=== PATIENT | male | born 1990 | race Hispanic/Latino ===

== ENCOUNTER 2018-05-08 11:48 | Emergency (ER) | payer OTHER ==
[~2018-05-08] VITALS: Ht 172.7 cm; Wt 81.6 kg
[~2018-05-08 11:48] MED LIST: AMOXICILLIN875 M1 PO; BACTRIM DS TAB1 EACH PO; CYCLOBENZAPRINE10 M1 PO; IBUPROFEN800 M1 PO; MEDROL4 M2 PO; MOTRIN800 MG PO; PERCOCET 325 MG1 TA2 PO; TAMIFLU75 M1 PO; ZOFRAN4 M1 PO
[2018-05-08 12:06] VITALS: BP 136/90
[2018-05-08 12:58] LABS: ABSOLUTE BASOPHIL COUNT 0 /CUMM (0.0-0.2); ABSOLUTE EOSINOPHIL COUNT 0.1 /CUMM (0.0-0.7); ABSOLUTE GRANULOCYTE CT 2.9 /CUMM (1.4-6.5); ABSOLUTE LYMPH COUNT 1.8 /CUMM (1.2-3.4); ABSOLUTE MONOCYTE COUNT 0.6 /CUMM (0.10-0.60); BASOPHIL % 0.3 % (0.0-2.0); EOSINOPHIL % 1.8 % (0-5); GRANULOCYTE % 54.2 % (42.2-75.2); HEMATOCRIT 48.3 % (42-52); MEAN CORPUSCULAR HGB 32.1 PG (27.0-31.0); MEAN CORPUSCULAR VOLUME 94.4 FL (80.0-94.0); MEAN PLATELET VOLUME 8.9 FL (7.4-10.4); PLATELET COUNT 254 /CUMM (130-400); RBC DISTRIBUTION WIDTH 13.8 % (11.5-14.5); RED BLOOD CELL CT 5.12 /CUMM (4.70-6.10); WHITE BLOOD CELL COUNT 5.4 /CUMM (4.8-10.8)
--- NOTE | 2018-05-08 14:27 | ED GENERAL ADULT ---
History of Present Illness General Chief Complaint: Dizziness Stated Complaint: "MY EYES ARE BOUNCING" NAUSEA Source: patient Exam Limitations: no limitations Vital Signs & Intake/Output Vital Signs & Intake/Output Vital Signs Date Time Temp Pulse Resp B/P B/P Pulse O2 O2 Flow FiO2 Mean Ox Delivery Rate 05/08 1206 96.4 61 18 136/90 99 Room Air Allergies Coded Allergies: NO KNOWN ALLERGIES (03/28/13) Reconcile Medications Amoxicillin 875 MG TABLET 1 TAB PO BID ABSCESS Ibuprofen 800 MG TABLET 1 TAB PO TID PRN PAIN Ibuprofen 800 MG TABLET 1 TAB PO TID FEVER/ACHES LORazepam (Ativan) 1 MG TAB 1 TAB PO BID PRN DIZZY Ondansetron (Zofran Odt) 4 MG TAB.RAPDIS 1 TAB SL TID PRN nausea Sulfamethoxazole/Trimethoprim (Bactrim Ds Tablet) 800 MG-160 MG TABLET 1 TAB PO BID ABSCESS Triage Note: PT FROM HOME C/O RODRIGUEZ, "OFF BALANCE" X2-3DAYS. PT STATES A FEW DAYS PRIOR HE AWOKE AND "IT HURTS TO MOVE MY HEAD, I FEEL OFF BALANCE, DIZZY, RODRIGUEZ, AND NAUSEA. VSS. Triage Nurses Notes Reviewed? yes Onset: Abrupt Duration: day(s): (3), constant, continues in ED Timing: single episode today Injury Environment: home Severity: mild, moderate Severity Numbers: 6 No Modifying Factors: none HPI: 27-year-old male with no past medical history presents evaluation of dizziness and nausea. Patient states symptoms started 3 days ago with persistent. He reports that he has dizziness with movement of his head. His symptoms improve when he is staying still. He reports he has had multiple episodes of vomiting. No abdominal pain no changes in vision no chest pain shortness of breath or palpitations. He has not taken any medicine for this. He has been able tolerate some fluids. He denies any fever or one-sided weakness or slurred speech. He's never had this before. Does not drink smoke or use any drugs. (Dileep Kuhn) Past History Travel History Traveled to [place] past 21 day No Medical History Any Pertinent Medical History? 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 No (Dileep Kuhn) Review of Systems Review of Systems Constitutional: Reports: no symptoms. EENTM: Reports: no symptoms. Respiratory: Reports: no symptoms. Cardiovascular: Reports: no symptoms. GI: Reports: see HPI, nausea. Genitourinary: Reports: no symptoms. Musculoskeletal: Reports: no symptoms. Skin: Reports: no symptoms. Neurological/Psychological: Reports: see HPI (DIZZY). Hematologic/Endocrine: Reports: no symptoms. Immunologic/Allergic: Reports: no symptoms. All Other Systems: Reviewed and Negative (Dileep Kuhn) Physical Exam Physical Exam General Appearance: well developed/nourished, no apparent distress, alert, awake Head: atraumatic, normal appearance Eyes: Bilateral: normal appearance, PERRL, EOMI, other (FATIGABLE NYSTAGMUS HORAZOINT) . Ears, Nose, Throat: normal pharynx, normal ENT inspection, hearing grossly normal Neck: normal inspection, supple, full range of motion Respiratory: normal breath sounds, chest non-tender, no respiratory distress, lungs clear Cardiovascular: regular rate/rhythm, normal peripheral pulses Peripheral Pulses: 2+ radial (R), 2+ radial (L) Gastrointestinal: soft, non-tender Back: normal inspection, normal range of motion, no vertebral tenderness Extremities: normal inspection, normal range of motion, no edema Neurologic/Psych: no motor/sensory deficits, awake, alert, oriented x 3, normal gait Skin: intact, normal color, warm/dry Lymphatic: no anterior cervical rodolfo Core Measures ACS in differential dx? No CVA/TIA Diagnosis: No Sepsis Present: No Sepsis Focused Exam Completed? No (Dileep Kuhn) Progress Differential Diagnoses I considered the following diagnoses in my evaluation of the patient: [VERTIGO, ANEMIA, ELECTROLYTE ABN, ARRYTHMIA, LARARYNTHRITIS. MENIERS DISEASE ] Plan of Care: Orders Procedure Date/time Status URINALYSIS 05/08 120 Active COMPREHENSIVE METABOLIC PANEL 05/08 120 Complete CBC WITHOUT DIFFERENTIAL 05/08 1206 Complete EKG 05/08 120 Active Laboratory Tests 05/08/18 1233: Anion Gap 11, Estimated GFR > 60, BUN/Creatinine Ratio 12.2, Glucose 91, Calcium 9.9, Total Bilirubin 1.0, AST 32, ALT 47, Alkaline Phosphatase 72, Total Protein 7.3, Albumin 4.4, Globulin 2.9, Albumin/Globulin Ratio 1.5, CBC w Diff NO MAN DIFF REQ, RBC 5.12, MCV 94.4 H, MCH 32.1 H, MCHC 34.0, RDW 13.8, MPV 8.9, Gran % 54.2, Lymphocytes % 33.1, Monocytes % 10.6 H, Eosinophils % 1.8, Basophils % 0.3, Absolute Granulocytes 2.9, Absolute Lymphocytes 1.8, Absolute Monocytes 0.6 , Absolute Eosinophils 0.1, Absolute Basophils 0 Patient is here with dizziness. He also has associated nausea and vomiting. The dizziness is associated with movement it resolves at rest. Patient is medicated with meclizine labs EKG ordered. Patient is feeling better after meclizine. He has a steady gait. He is able tolerate fluids. Patient will be given a prescription for meclizine and Ativan to go home with her continued symptoms. Advised him to the restaurant plenty of fluids and follow-up with primary care doctor for a recheck. Discussed return precautions patient agrees the plan Initial ED EKG: none (Dileep Kuhn) Departure Departure Disposition: HOME OR SELF CARE Condition: Stable Clinical Impression Primary Impression: Vertigo Referrals: Kyleigh GONSALEZ,Dk Will MD,Avinash Robbins MD,Blake Herring Patient Has No Primary Care Dr (PCP/Family) Additional Instructions: Rest and drink plenty of fluids. Zofran for nausea and Ativan for dizziness. Make a follow-up with provided primary care doctor. Monitor symptoms return with any concerns. Departure Forms: Customer Survey General Discharge Information Prescriptions: Current Visit Scripts LORazepam (Ativan) 1 TAB PO BID PRN DIZZY #10 TAB Ondansetron (Zofran Odt) 1 TAB SL TID PRN nausea #10 TAB (Dileep Kuhn) PA/SOFTWARE DEVELOPMENT TEST ENGINEER Co-Sign Statement Statement: ED Attending supervision documentation- [] I saw and evaluated the patient. I have also reviewed all the pertinent lab results and diagnostic results. I agree with the findings and the plan of care as documented in the PA's/SOFTWARE DEVELOPMENT TEST ENGINEER's documentation. [x] I have reviewed the ED Record and agree with the PA's/SOFTWARE DEVELOPMENT TEST ENGINEER's documentation. [] Additions or exceptions (if any) to the PAs/SOFTWARE DEVELOPMENT TEST ENGINEER's note and plan are summarized below: [] (Spike GONSALEZ,[facility]) Critical Care Note Critical Care Note Critical Care Time: non-applicable (Dileep Kuhn)
[2018-05-08] MEDS ORDERED: ATIVAN1 M1 PO (14:31)
[2018-05-08] MEDS ORDERED: ZOFRAN ODT4 M1 SL (14:32)
== END 2018-05-08 15:00 ==
LOC: ERH 11:48
PROVIDERS: Physician Assistant Medical
DX: R42 Dizziness and giddiness (principal)
CPT/HCPCS: 93005; 93010